=== PATIENT | female | born 1940 | race Caucasian/White ===

== ENCOUNTER 2016-08-21 17:12 | Emergency (ER) | payer OTHER ==
[~2016-08-21] VITALS: Ht 172.7 cm; Wt 113.4 kg
[~2016-08-21 17:12] MED LIST: ALBUTEROL SULFAT3 M1 INH; FLOMAX(MONOGRA0.4 MG PO; NEBULIZER MACHINE; NORCO 325 MG-51 TAB PO; PERCOCET 325 MG1 TA2 PO; PROAIR HFA0.09 MG/Ac INH; ROBITUSSIN W/CO10 ML PO
[2016-08-21] MEDS ORDERED: PROPRANOLOL HCL10 M1 PO (17:37)
[2016-08-21] MEDS ORDERED: METFORMIN HCL500 M3 PO (17:38)
[2016-08-21] MEDS ORDERED: LISINOPRIL2.5 M1 PO (17:38)
[2016-08-21] MEDS ORDERED: QUETIAPINE FUM100 M1 PO (17:38)
[2016-08-21] MEDS ORDERED: VITAMIN D250000 UNIT PO (17:38)
[2016-08-21] MEDS ORDERED: GABAPENTIN300 M2 PO (17:39)
[2016-08-21] MEDS ORDERED: OXYBUTYNIN CHLOR5 M3 PO (17:39)
[2016-08-21] MEDS ORDERED: LOVASTATIN20 M1 PO (17:39)
[2016-08-21] MEDS ORDERED: ASPIRIN EC81 M1 PO (17:46)
--- NOTE | 2016-08-21 18:18 | ED GENERAL ADULT ---
History of Present Illness General Chief Complaint: Abdominal Pain/Flank Pain Stated Complaint: LLQ ABD PAIN Source: patient Exam Limitations: no limitations Allergies Coded Allergies: NO KNOWN ALLERGIES (02/25/13) Triage Note: PT TO [facility] WITH C/O LLQ ABD PAIN 04/12 SINCE THIS MORNING, PT DENIES N/V/D, LAST BM THIS MORNING SMALL AMOUNT. PT DENIES CHEST PAIN,SOB. PT AFEBRILE. HX OF CVA,HTN,DIABETES,DIVERTICULITIS. PT TO ROOM4 FOR EKG. Triage Nurses Notes Reviewed? yes HPI: 75-year-old woman with past medical history significant for diverticulitis status post colectomy lower quadrant abdominal pain, nausea, and dry heaves. She reports waking up this morning with mild abdominal discomfort and reports that her bowel movements have been less volume recently, last bowel movement was this morning and appeared normal however was "hardly anything". She also reports recent decrease in her urination, but admits to mild incontinence with large volume voiding when she does pass urine. Otherwise she denies any headache, fever, chills, chest pain, palpitations, shortness of breath, numbness /tingling. (BENITEZ MCHUGH,DIVINA) Vital Signs & Intake/Output Vital Signs & Intake/Output Vital Signs Date Time Temp Pulse Resp B/P Pulse O2 O2 Flow FiO2 Ox Delivery Rate 08/21 1900 98.0 78 22 154/82 100 Room Air 08/21 1813 98.2 70 20 148/88 98 Room Air 08/21 1723 97.8 68 18 143/65 98 Room Air Reconcile Medications Aspirin (Ecotrin*) 81 MG TABLET.DR 1 TAB PO DAILY HEART/BLOOD (Reported) Ergocalciferol (Vitamin D2) (Vitamin D2) 50,000 UNIT CAPSULE 1 CAP PO QSUN SUPPLEMENT (Reported) Gabapentin 300 MG CAPSULE 1 CAP PO TID NERVE PAIN (Reported) Ibuprofen 400 MG TABLET 1 TAB PO TID PRN PAIN Lisinopril 2.5 MG TABLET 1 TAB PO DAILY BP (Reported) Lovastatin 20 MG TABLET 1 TAB PO DAILY CHOLESTEROL (Reported) Metformin HCl 500 MG TABLET 1 TAB PO QAM DM (Reported) Oxybutynin Chloride (Oxybutynin Chloride ER) 5 MG TAB.ER.24 1 TAB PO DAILY BLADDER (Reported) Oxycodone HCl/Acetaminophen (Percocet 5-325 MG Tablet) 5 MG-325 MG TABLET 1 TAB PO Q4-6 PRN BREAKTHROUGH PAIN Propranolol HCl 10 MG TABLET 1 TAB PO DAILY TREMORS (Reported) Quetiapine Fumarate 100 MG TABLET 1 TAB PO BID MENTAL HEALTH (Reported) Tamsulosin HCl (Flomax) 0.4 MG CAP.ER.24H 1 CAP PO DAILY KIDNEY STONE Tamsulosin HCl (Flomax) 0.4 MG CAP.ER.24H 1 CAP PO DAILY KIDNEY STONE (BRANDI MCHUGH,JOURDAN) Past History Travel History Traveled to [place] past 21 day No Medical History Any Pertinent Medical History? see below for history Neurological: CVA Cardiovascular: hypertension Gastrointestinal: diverticulitis Renal: nephrolithiasis Endocrine: diabetes Surgical History Surgical History: Colectomy Psychosocial History Who do you live with Patient/Self What is your primary language Slovak Tobacco Use: Quit >30 days ago Family History Hx Contributory? Yes (DIVINA MARQUIS MD) Review of Systems Review of Systems Constitutional: Reports: see HPI. (DIVINA MARQUIS MD) Physical Exam Physical Exam General Appearance: well developed/nourished, alert, awake, comfortable, mild distress Comments: General -well-developed, well-nourished obese elderly woman in mild distress HEENT - NCAT, PERRL, EOMI, anicteric sclera Cardio - S1, S2 w/o murmurs/gallops/rubs Resp - CTA bilaterally w/o wheezing/rhochi/crackles GI -soft, obese, moderate left lower quadrant tenderness without guarding or rigidity, large midline healed surgical incision, bowel sounds intact Neuro - Awake and alert, CN II - XII grossly intact Extremities - no edema, pulses intact Core Measures ACS in differential dx? No CVA/TIA Diagnosis: No Severe Sepsis Present: No Septic Shock Present: No (DIVINA MARQUIS MD) Progress Differential Diagnoses I considered the following diagnoses in my evaluation of the patient: Small bowel obstruction, diverticulitis, ischemic colitis, stool impaction, renal stone Initial ED EKG: NSR, MO (176), abnormal Q waves Comments: Given patient's history of present illness and physical examination differentials include diverticulitis, small bowel obstruction, ischemic colitis and stool impaction. Given her distant surgical history involving a colectomy and her altered anatomy it is possible she has a small bowel obstruction, however she admits to passing flatus with a recent bowel movement this morning although it was small volume. Diverticulitis is also likely given patient's leukocytosis. Complete blood count demonstrates WBC 11.9, Hgb/HCT 14.3/44.0 Comprehensive metabolic panel demonstrates BUN/creatinine of 30/1.0. Lactic acid 1.4. Troponin 0.02, lipase 52. Urinalysis demonstrates moderate leukocyte esterase with 10-15 RBCs and moderate hemoglobin, 25-50 WBC although many epithelial cells with calcium oxalate crystals. CT Abdomen/Pelvis with IV contrast still pending. (BENITEZ MCHUGH,DIVINA) Plan of Care: Orders Procedure Date/time Status LACTIC ACID 08/21 2039 Active URINALYSIS 08/21 1739 Complete TROPONIN LEVEL 08/21 1739 Complete LIPASE 08/21 1739 Complete LACTIC ACID 08/21 1739 Complete COMPREHENSIVE METABOLIC PANEL 08/21 1739 Complete CBC WITHOUT DIFFERENTIAL 08/21 1739 Complete EKG 08/21 1713 Active Current Medications Sig/Deanna Start time Last Medication Dose Stop Time Status Admin Acetaminophen 1,000 MG ONCE ONE 08/21 1999 CAN (Ofirmev) 08/21 2013 N/A 1 UNIT (No Carrier) Laboratory Tests 08/21/16 1800: Urine Color YEL, Urine Clarity HAZY H, Urine pH 6.0, Ur Specific [place] >= 1.030, Urine Protein TRACE H, Urine Ketones TRACE H, Urine Nitrite NEG, Urine Bilirubin NEG, Urine Urobilinogen 0.2, Ur Leukocyte Esterase MOD H, Ur Microscopic SEDIMENT EXAMINED, Urine RBC 10-15 H, Urine WBC 25-50 H, Ur Epithelial Cells MANY H, Urine Crystals 4+ CA OX H, Urine Mucus MANY H, Urine Hemoglobin MOD H, Urine Glucose NEG 08/21/16 1752: Anion Gap 11, Estimated GFR 54 L, BUN/Creatinine Ratio 30.0 H, Glucose 104 H, Lactic Acid 1.4, Calcium 9.3, Total Bilirubin 0.5, AST 28, ALT 27, Alkaline Phosphatase 100, Troponin I 0.02, Total Protein 6.8, Albumin 3.6, Globulin 3.2, Albumin/Globulin Ratio 1.1, Lipase 52, CBC w Diff NO MAN DIFF REQ, RBC 4.84, MCV 91.1, MCH 29.5, RDW 15.4 H, MPV 10.4, Gran % 79.7 H, Lymphocytes % 12.2 L, Monocytes % 5.0, Eosinophils % 2.7, Basophils % 0.4, Absolute Granulocytes 9.5 H, Absolute Lymphocytes 1.5, Absolute Monocytes 0.6, Absolute Eosinophils 0.3, Absolute Basophils 0.1, PUBS MCHC 32.4 L 08/21/2016 7:12:20 PM Patient signed out to me by the resident pending CT scan and labs. Discussed CT results and blood results with the patient and her daughter. IV Toradol and Rocephin administered the patient. No fever here. She is nontoxic appearing. She'll follow-up with Dr. Yanes outpatient. Patient will be sent home with antibiotics, Motrin, flomax and Percocet. She'll be given a urinary strainer upon disposition. (BRANDI MCHUGH,[facility]) Diagnostic Imaging: Viewed by Me: CT Scan. Discussed w/RAD: CT Scan. Radiology Impression: PATIENT: YIFAN MCBRIDE PRESENT AGE: 75 PATIENT ACCOUNT NO: [id number] : 39 LOCATION: [facility] ORDERING PHYSICIAN: DIVINA MARQUIS MD SERVICE DATE: 08/21/16 EXAM TYPE: CAT - CT ABD & PELVIS W IV CONTRAST EXAMINATION: CT ABDOMEN AND PELVIS WITH CONTRAST CLINICAL INFORMATION: Left lower quadrant abdominal pain. Nausea and vomiting. History of diverticulitis with colectomy. COMPARISON: CT abdomen and pelvis 11/30/2014. TECHNIQUE: Multidetector volumetric imaging was performed of the abdomen and pelvis before and after the IV administration of 94 mL of Optiray 320 intravenous contrast. Sagittal and coronal reformatted images were obtained on the technologist's workstation. DLP: 1282 mGy-cm. FINDINGS: LUNG BASES: The visualized lung bases are unremarkable. LIVER, GALLBLADDER, AND BILIARY TREE: No focal hepatic lesion. A coarse calcification is demonstrated adjacent to the right dome of the liver. No biliary ductal dilatation. Cholelithiasis without evidence of cholecystitis. PANCREAS: Unremarkable. SPLEEN : Unremarkable. ADRENAL GLANDS: Unremarkable. KIDNEYS AND URETERS: There is left -sided hydroureteronephrosis extending from a 0.2 cm calculus at the left UVJ. Perinephric and periureteral stranding is demonstrated. A nonobstructing tiny punctate calculus is demonstrated in the upper pole of the right kidney. There are a few right renal cysts measuring up to 3.4 cm in diameter. No enhancing renal mass demonstrated. BLADDER: Predominantly decompressed. GASTROINTESTINAL TRACT: Bowel gas pattern is nonobstructive. Surgical changes status post partial colectomy. Associated surgical material. The appendix is not visualized. No large or small bowel inflammation demonstrated. ABDOMINAL WALL: There is a fat- containing upper abdominal ventral hernia with hernia neck measuring 5.4 cm in diameter and hernia sac measuring 9.5 cm in diameter. Postsurgical changes of the ventral abdomen. An additional small supraumbilical fat-containing hernia is demonstrated. There is multifocal eventration/herniation of the mid lower abdomen which contains nonobstructed bowel. LYMPH NODES: No pathologically enlarged lymph nodes. VASCULAR: Scattered atherosclerotic calcification. PELVIC VISCERA: The uterus is absent. No suspicious adnexal mass. Multiple pelvic phleboliths. No free pelvic fluid. OSSEOUS STRUCTURES: No acute osseous abnormalities. IMPRESSION: 1. An obstructing 0.2 cm calculus at the left UVJ with hydroureteronephrosis. 2. No acute bowel pathology. Postsurgical changes status post partial colectomy. 3. Multiple ventral hernias as described above. 4. Cholelithiasis. 5. Additional nonacute findings as described above. DICTATED BY: HEMAL LEVIN MD DATE/TIME DICTATED:08/21/161946 RESEARCH AND EVALUATION MANAGER: CHAD DATE/TIME TRANSCRIBED:08/21/161946 CONFIDENTIAL, DO NOT COPY WITHOUT APPROPRIATE AUTHORIZATION. <Electronically signed in Other Vendor System> SIGNED BY: HEMAL LEVIN MD 08/21/162002 (JOURDAN PAZ MD) Departure Departure Departure Forms: Customer Survey General Discharge Information (BENITEZ MCHUGH,DIVINA) Resident Co-Sign Statement Statement: ED Attending supervision documentation- [x] I saw and evaluated the patient. I have also reviewed all the pertinent lab results and diagnostic results. I agree with the findings and the plan of care as documented in the Resident's documentation. [] I have reviewed the ED Record and agree with the Resident's documentation. [] Additions or exceptions (if any) to the Resident's note and plan are summarized below: [] (DANIAL MCHUGH,TIFFANIE Palacios) Departure Time of Disposition: 2101 Disposition: HOME OR SELF CARE Condition: Stable Clinical Impression Primary Impression: Obstructive uropathy Referrals: ALISON MCHUGH,SAULO Fairbanks (PCP/Family) AARON YANES MD Additional Instructions: Taking the Cipro, ibuprofen, Flomax and Percocet as directed. Please drink plenty of fluids. Follow up with Dr. Yanes in the office. Return to ER for any changing or worsening symptoms. Prescriptions: Current Visit Scripts Ibuprofen 1 TAB PO TID PRN PAIN #20 TAB Tamsulosin HCl (Flomax) 1 CAP PO DAILY #14 CAP Tamsulosin HCl (Flomax) 1 CAP PO DAILY #14 CAP Oxycodone HCl/Acetaminophen (Percocet 5-325 MG Tablet) 1 TAB PO Q4-6 PRN BREAKTHROUGH PAIN #10 TAB Ciprofloxacin HCl (Cipro) 1 TAB PO BID #14 TAB (BRANDI MCHUGH,JOURDAN) Critical Care Note Critical Care Note Critical Care Time: non-applicable (BENITEZ MCHUGH,DIVINA)
[2016-08-21 18:32] LABS: ABSOLUTE BASOPHIL COUNT 0.1 /CUMM (0.0-0.2); ABSOLUTE EOSINOPHIL COUNT 0.3 /CUMM (0.0-0.7); ABSOLUTE GRANULOCYTE CT 9.5 /CUMM (1.4-6.5); ABSOLUTE LYMPH COUNT 1.5 /CUMM (1.2-3.4); ABSOLUTE MONOCYTE COUNT 0.6 /CUMM (0.10-0.60); BASOPHIL % 0.4 % (0.0-2.0); EOSINOPHIL % 2.7 % (0-5); GRANULOCYTE % 79.7 % (42.2-75.2); MEAN CORPUSCULAR HGB 29.5 PG (27.0-31.0); MEAN CORPUSCULAR HGB CONC 32.4 G/DL (33.0-37.0); MEAN CORPUSCULAR VOLUME 91.1 FL (81.0-99.0); MEAN PLATELET VOLUME 10.4 FL (7.4-10.4); PLATELET COUNT 155 /CUMM (130-400); RBC DISTRIBUTION WIDTH 15.4 % (11.5-14.5); RED BLOOD CELL CT 4.84 /CUMM (4.20-5.40); WHITE BLOOD CELL COUNT 11.9 /CUMM (4.8-10.8)
--- NOTE | 2016-08-21 20:03 | CT SCAN REPORT ---
EXAMINATION: CT ABDOMEN AND PELVIS WITH CONTRAST CLINICAL INFORMATION: Left lower quadrant abdominal pain. Nausea and vomiting. History of diverticulitis with colectomy. COMPARISON: CT abdomen and pelvis 11/30/2014. TECHNIQUE: Multidetector volumetric imaging was performed of the abdomen and pelvis before and after the IV administration of 94 mL of Optiray 320 intravenous contrast. Sagittal and coronal reformatted images were obtained on the technologist's workstation. DLP: 1282 mGy-cm. FINDINGS: LUNG BASES: The visualized lung bases are unremarkable. LIVER, GALLBLADDER, AND BILIARY TREE: No focal hepatic lesion. A coarse calcification is demonstrated adjacent to the right dome of the liver. No biliary ductal dilatation. Cholelithiasis without evidence of cholecystitis. PANCREAS: Unremarkable. SPLEEN: Unremarkable. ADRENAL GLANDS: Unremarkable. KIDNEYS AND URETERS: There is left-sided hydroureteronephrosis extending from a 0.2 cm calculus at the left UVJ. Perinephric and periureteral stranding is demonstrated. A nonobstructing tiny punctate calculus is demonstrated in the upper pole of the right kidney. There are a few right renal cysts measuring up to 3.4 cm in diameter. No enhancing renal mass demonstrated. BLADDER: Predominantly decompressed. GASTROINTESTINAL TRACT: Bowel gas pattern is nonobstructive. Surgical changes status post partial colectomy. Associated surgical material. The appendix is not visualized. No large or small bowel inflammation demonstrated. ABDOMINAL WALL: There is a fat-containing upper abdominal ventral hernia with hernia neck measuring 5.4 cm in diameter and hernia sac measuring 9.5 cm in diameter. Postsurgical changes of the ventral abdomen. An additional small supraumbilical fat-containing hernia is demonstrated. There is multifocal eventration/herniation of the mid lower abdomen which contains nonobstructed bowel. LYMPH NODES: No pathologically enlarged lymph nodes. VASCULAR: Scattered atherosclerotic calcification. PELVIC VISCERA: The uterus is absent. No suspicious adnexal mass. Multiple pelvic phleboliths. No free pelvic fluid. OSSEOUS STRUCTURES: No acute osseous abnormalities. IMPRESSION: 1. An obstructing 0.2 cm calculus at the left UVJ with hydroureteronephrosis. 2. No acute bowel pathology. Postsurgical changes status post partial colectomy. 3. Multiple ventral hernias as described above. 4. Cholelithiasis. 5. Additional nonacute findings as described above.
[2016-08-21] MEDS ORDERED: PERCOCET 5-3251 EACH PO (20:50)
[2016-08-21] MEDS ORDERED: FLOMAX0.4 M1 PO (20:50)
[2016-08-21] MEDS ORDERED: IBUPROFEN400 M1 PO (20:50)
[2016-08-21] MEDS ORDERED: CIPRO500 M1 PO (21:15)
[2016-08-21 21:41] VITALS: BP 148/82
== END 2016-08-21 21:45 ==
LOC: ERH 17:12
PROVIDERS: Internal Medicine Interventional Cardiology
DX: N13.9 Obstructive and reflux uropathy, unspecified (principal); I10 Essential (primary) hypertension; Z87.891 Personal history of nicotine dependence
CPT/HCPCS: 74177; 81001; 93005; 93010; 96374; 96375; 96376; J0696; J1885; J2405

== ENCOUNTER → 2016-08-31 | Day surgery (SDC) | payer OTHER ==
[~2016-08-31] VITALS: Ht 172.7 cm; Wt 113.4 kg
[~2016-08-31] MED LIST changes: +ASPIRIN EC81 M1 PO; +CIPRO500 M1 PO; +FLOMAX0.4 M1 PO; +GABAPENTIN300 M2 PO; +IBUPROFEN400 M1 PO; +LISINOPRIL2.5 M1 PO; +LOVASTATIN20 M1 PO; +METFORMIN HCL500 M3 PO; +OXYBUTYNIN CHLOR5 M3 PO; +PERCOCET 5-3251 EACH PO; +PROPRANOLOL HCL10 M1 PO; +QUETIAPINE FUM100 M1 PO; +VITAMIN D250000 UNIT PO
--- NOTE | 2016-08-31 11:39 | Operative Report ---
Operative/Inv Procedure Report Surgery Date: 08/31/16 Name of Procedure: left ureter eswl. flurosocopy Pre-Operative Diagnosis: left UVJ stone with hydro. and colic Post-Operative Diagnosis: same Estimated Blood Loss: none Surgeon/Meat Pumper: AARON TALAVERA MD Anesthesia: moderate sedation Complications: none Operative/Procedure Note Note: The patient was taken to the operating room and placed on the ESWL table in supine position. Time out was performed, with the patient awake, to confirm identity, procedure, laterality, and other pertinent oleksandr-operative information. After adequate anesthesia, the patient was positioned so that the left flank was placed over the ESWL table cut-out, and overlying the dome of the shockwave generator. C-arm fluroscopy, as well as renal US was used to locate the stone, and evaluate the left kidney. The left stone was visible on fluroloscopy at the distal ureter. Renal US confirmed mild hydronephrosis, with no additional stone seen in the left kidney. The left ureter stone was approximate 3 mm in size, and faintly visible with fluoroscopy. Using fluoroscopy, the position of the ureter stone was optimized for ESWL, using AP, and oblique views of the stone. Subsequently, E.S.W.L. was initiated at low power levels x 200 shocks. After noting the patient's tolerance to the shockwaves, the shock wave power level was quickly maximized. At the end of the procedure, the composition of the stone had changed significantly indicating the pulverization of the ureter stone. A total of 3000 shockwaves were delivered to the stone in order to achieve adequate lithotrypsy. The patient tolerated the procedures well, was awakened, and taken to recovery in satisfactory condition via stretcher. The pt will eventually be dischared to home with pain meds, diet orders, and intructions to catch fragments with straining the urine. The patient is to have follow-up renal ultrasound and KUB (after the left renal stone is treated as well). Findings: 3mm left uvj stone shattered at 3000 Discharge Disposition: Same Day Admissions CC: AARON TALAVERA MD
== END ==
LOC: STS 08-24 07:00
DX: N13.2 Hydronephrosis with renal and ureteral calculous obstruction (principal); Z87.442 Personal history of urinary calculi; E11.9 Type 2 diabetes mellitus without complications; Z79.84 Long term (current) use of oral hypoglycemic drugs; Z86.73 Personal history of transient ischemic attack (TIA), and cerebral infarction without residual deficits; Z87.891 Personal history of nicotine dependence
CPT/HCPCS: J2250